=== PATIENT | male | born 1965 | race Two or more races ===

== ENCOUNTER 2024-07-19 11:34 | Emergency (ER) | payer OTHER ==
[~2024-07-19] VITALS: Ht 182.9 cm; Wt 108.9 kg
[2024-07-19] MEDS ORDERED: FAMOtidine 40 MG TABLET PO ONE (12:30)
[2024-07-19] MEDS ORDERED: HYOSCYAMINE SULFATE 0.125 MG TAB.SUBL SL ONE (12:30)
[2024-07-19] MEDS ORDERED: HYOSCYAMINE SULFATE 0.125 MG TAB.SUBL ONE (12:45)
[2024-07-19 13:12] LABS: BASO % 0.1 % (0.1-1.2); EOS % 1.4 % (0.7-7.0); HEMATOCRIT 46.3 % (40.1-51.0); HEMOGLOBIN 15.6 g/dL (13.7-17.5); LYMPH # 1.65 (1.18-3.74); LYMPH % 23.5 % (19.3-53.1); MEAN CORPUSCULAR HEMOGLOBIN 30.5 pg (25.6-32.2); MONO # 0.69 (0.24-0.82); MONO % 9.8 % (4.7-12.5); NEUT # 4.57 (1.56-6.13); NEUT % 65.1 % (34.0-71.1); PLATELET COUNT 236 K/uL (163-369); RED BLOOD COUNT 5.12 M/uL (4.63-6.08); RED CELL DISTRIBUTION WIDTH 13.2 % (11.6-14.4)
[2024-07-19 13:57] LABS: COVID-19 AG NEGATIVE (NEGATIVE)
[2024-07-19 14:01] LABS: INFLUENZA A AG NEGATIVE (NEGATIVE); INFLUENZA B AG NEGATIVE (NEGATIVE)
[2024-07-19 14:11] LABS: ALBUMIN 3.7 gm/dL (3.4-5.0); BILIRUBIN TOTAL 0.32 mg/dL (0.3-1.2); CALCIUM 8.8 mg/dL (8.5-10.1); CREATININE SERUM 1.04 mg/dL (0.70-1.30); GFR 73.1; GLOBULINA 3.9 G/DL (2.4-3.5); POTASSIUM 4.74 mEq/L (3.5-5.1); TOTAL PROTEIN 7.6 gm/dL (6.4-8.2)
[2024-07-20] MEDS ORDERED: ONDANSETRON HCL8 MG (11:00)
[2024-07-20] MEDS ORDERED: HYOSCYAMINE0.125 M1 (11:00)
[2024-07-20] MEDS ORDERED: PANTOPRAZOLE SO40 MG (11:01)
== END 2024-07-19 14:44 | disposition home or self-care (01) ==
LOC: ER 12:24
PROVIDERS: General Practice
DX: K52.9 Noninfective gastroenteritis and colitis, unspecified (principal); Z20.822 Contact with and (suspected) exposure to COVID-19

== ENCOUNTER 2024-07-20 10:33 | Emergency (ER) | payer OTHER ==
[~2024-07-20] VITALS: Ht 182.9 cm; Wt 108.9 kg
[2024-07-20] MEDS ORDERED: ONDANSETRON HCL8 MG (11:00)
[2024-07-20] MEDS ORDERED: HYOSCYAMINE0.125 M1 (11:00)
[2024-07-20] MEDS ORDERED: PANTOPRAZOLE SO40 MG (11:01)
[2024-07-20] MEDS ORDERED: FAMOTIDINE/PF 20 MG in 0.9 % SODIUM CHLORIDE 8 ML IV PUSH STA (11:14)
[2024-07-20] MEDS ORDERED: MORPHINE SULFATE 4 MG/ML VIAL IV ONE (11:15)
[2024-07-20] MEDS ORDERED: FAMOTIDINE/PF 20 MG/2 ML VIAL ONE (11:18)
[2024-07-20] MEDS ORDERED: 0.9 % SODIUM CHLORIDE 1,000 ML IV SCH (12:00)
[2024-07-20 12:05] LABS: BASO % 0.3 % (0.1-1.2); HEMATOCRIT 49.7 % (40.1-51.0); HEMOGLOBIN 16.8 g/dL (13.7-17.5); LYMPH # 0.65 (1.18-3.74); MEAN CORPUSCULAR HEMOGLOBIN 29.7 pg (25.6-32.2); MONO # 0.42 (0.24-0.82); MONO % 6.5 % (4.7-12.5); NEUT # 5.36 (1.56-6.13); NEUT % 82.9 % (34.0-71.1); PLATELET COUNT 273 K/uL (163-369); RED BLOOD COUNT 5.66 M/uL (4.63-6.08); RED CELL DISTRIBUTION WIDTH 12.8 % (11.6-14.4)
[2024-07-20 12:29] LABS: BILIRUBIN TOTAL 0.42 mg/dL (0.3-1.2); CALCIUM 9.7 mg/dL (8.5-10.1); CREATININE SERUM 1.19 mg/dL (0.70-1.30); GFR 62.57; GLOBULINA 4.8 G/DL (2.4-3.5); POTASSIUM 5.01 mEq/L (3.5-5.1); TOTAL PROTEIN 8.8 gm/dL (6.4-8.2)
[2024-07-20 15:18] LABS: PH,URINE 5.5 (5.0-8.0); URINE APPEARANCE Clear; URINE BILIRRUBIN Negative (NEGATIVE); URINE BLOOD Negative; URINE COLOR Yellow; URINE GLUCOSE Negative (NEGATIVE); URINE KETONE Trace (NEGATIVE); URINE LEUKOCYTE Negative; URINE NITRATE Negative; URINE PROTEIN 30 (NEGATIVE); URINE UROBILINOGEN 0.2 E.U./dl
[2024-07-20 15:20] LABS: URINE BACTERIA 36.7 uL (0.0-1933); URINE CAST 2.06 uL (0.0-1.40); URINE EPITHELIAL CELLS 3.7 uL (0.0-38.8); URINE RBC 2.5 uL (0.0-20.8); URINE WBC 4.5 uL (0.0-23.2)
[2024-07-20] MEDS ORDERED: SUCRALFATE 1 G TABLET PO ONE (15:45)
== END 2024-07-20 20:29 | disposition home or self-care (01) ==
LOC: ER 10:44
PROVIDERS: Emergency Medicine
DX: K52.9 Noninfective gastroenteritis and colitis, unspecified (principal); A05.9 Bacterial foodborne intoxication, unspecified